=== PATIENT | male | born 1995 | race Caucasian/White ===

== ENCOUNTER 2019-12-23 08:27 | Emergency (ER) | payer BC, SELFPAY ==
--- NOTE | ~2019-12-23 | XR_ITS ---
EXAMINATION: XR abdomen/kub 1V EXAM DATE: 12/23/2019 09:42 INDICATION: Left flank pain, left lower pelvic pain. Left mid ureteral stone. TECHNIQUE: Frontal projection of the upper abdomen, frontal projection lower abdomen/pelvis for inter pretation. Correlation is made to CT abdomen same date. FINDINGS: There is expected amount of colonic stool and gas. No small bowel dilation, nonobstructiv e bowel gas pattern. Can't identify the left mid ureteral stone which projects over the sacrum, expe cted region has been indicated. Small right nephrolithiasis is identified. There is no organomegaly s uspected. The bones are unremarkable. IMPRESSION: Can't identify left mid ureteral stone. Small right nephrolithiasis identified. Reviewed, dictated and finalized at location A. IMPRESSION: Can't identify left mid ureteral stone. Small right nephrolithiasi s identified.
--- NOTE | ~2019-12-23 | CT_ITS ---
EXAMINATION: CT abdomen pelvis wo con EXAM DATE: 12/23/2019 09:33 INDICATION: Left-sided flank pain, nausea and vomiting. TECHNIQUE: Spiral CT of the abdomen and pelvis was performed without contrast. Axial, coronal and s agittal images were reviewed. The dose-length product (DLP) for this examination was 192.85 mGy-cm. The exposure was tailored according to patient size (auto mA exposure control), and iterative recons truction (ASIR) was used as additional dose reduction technique. There is no prior study for compari son. FINDINGS: The liver, spleen, adrenal glands and pancreas are unremarkable. Gallbladder is unremarkab le. No biliary obstruction. There is a 3 mm stone in the mid aspect of the left ureter. Mild left-si ded obstructive nephropathy. Scattered small kidney stones, largest on the right up to 4 mm. The pro state is unremarkable. The bladder is unremarkable. There is no retroperitoneal or pelvic lymphaden opathy. The appendix is normal. The stomach and small bowel are unremarkable. There is expected amount of c olonic stool. No free intraperitoneal gas. The heart is normal in size. There are no pericardial or pleural effusions. The lung bases are unremarkable. The bones are unremarkable. IMPRESSION: 1. Left mid ureteral 3 mm stone, mild obstructive nephropathy. 2. Small bilateral nephrolithiasis. Reviewed, dictated and finalized at location A.
[2019-12-23 08:30] VITALS: BP 143/106; PULSE 96; RESP 20; TEMP 36.4; O2SAT 100
[2019-12-23] MEDS: LACTATED RINGERS 1,000 ML 999 ML IV CONT (09:00)
--- NOTE | 2019-12-23 09:00 | ED.GENADULT ---
HPI - General Adult General Chief complaint: Back Pain/Injury Stated complaint: left lower back pain Time Seen by Provider: 12/23/19 08:37 Source: patient Mode of arrival: ambulatory Limitations: no limitations History of Present Illness HPI narrative: This patient is a 24 year old male who presents with c/o left flank pain. Patient developed pain to his left lower back early this morning. This pain has been intermittent, and it will get worse and then resolve. He started having nausea and vomiting x 2 so he came to ER. His pain has started to migrate around to left lower abdomen. He took tylenol at 6 am this morning. Onset (ago): hour(s) Location: back Radiation: abdomen Pain Consistency: colicky Relieving factors: none Exacerbating factors: none Related Data Allergies Allergy/AdvReac Type Severity Reaction Status Date / Time No Known Allergies Allergy Mild Verified 12/23/19 08:36 Review of Systems Review of Systems: All systems reviewed & are unremarkable except as noted in HPI and below Constitutional: Constitutional: Denies chills and Denies fever(s) Cardiovascular: Cardiovascular: Denies chest pain Respiratory: Respiratory: Denies cough and Denies dyspnea Gastrointestinal: Gastrointestinal: Reports abdominal pain, Denies diarrhea, Reports nausea and Reports vomiting Genitourinary: Genitourinary: Denies hematuria, Denies oliguria, Denies dysuria and Denies urinary frequency Musculoskeletal: Musculoskeletal: Reports back pain PMF Past Medical History Medical History (Updated 12/23/19 @ 12:38 by Marsha Santana MD) Patient denies significant medical history Surgical History Surgical History (Updated 12/23/19 @ 09:01 by Marsha Santana MD) No history of previous surgery Exam Narrative: Exam Narrative: HEAD: Normocephalic, atraumatic EYES: PERRLA and EOMI, conjunctiva clear without discharge NECK: Supple, without lymphadenopathy or mass RESPIRATORY: No respiratory distress, Airway patent, Respirations non-labored, Clear to auscultation without rales, rhonchi or wheeze HEART: Regular rate and rhythm. No murmur heard. Normal peripheral pulses. ABDOMEN: Soft, nontender, nondistended, normal active bowel sounds. No masses. No rebound or guarding, No organomegaly. EXTREMITIES: No edema, normal strength with full range of motion. SKIN: Warm, dry, normal color without rash NEURO: Alert and oriented x3. CN 2-12 grossly intact. No focal deficits. PSYCH: Normal mood and affect. Const: General: alert Orientation/consciousness: patient oriented x3 Other: mild distress Course Reevaluation(s) Reevaluation #1: I have discussed with patient that he was found to have a kidney stone as the cause for his pain. Date: 12/23/19 Time: 12:36 Vital Signs Vital signs: Vital Signs Temperature 97.6 F 12/23/19 08:30 Pulse Rate 96 12/23/19 08:30 Respiratory Rate 20 12/23/19 08:30 Blood Pressure 143/106 H 12/23/19 08:30 Pulse Oximetry 100 12/23/19 08:30 Temperature 97.6 F 12/23/19 08:30 Pulse Rate 100 12/23/19 12:50 Respiratory Rate 16 12/23/19 12:50 Blood Pressure 133/89 12/23/19 12:50 Pulse Oximetry 100 12/23/19 12:50 Medical Decision Making Vital Signs Vital Signs: Vital Signs Temperature 97.6 F 12/23/19 08:30 Pulse Rate 96 12/23/19 08:30 Respiratory Rate 20 12/23/19 08:30 Blood Pressure 143/106 H 12/23/19 08:30 Pulse Oximetry 100 12/23/19 08:30 Temperature 97.6 F 12/23/19 08:30 Pulse Rate 100 12/23/19 12:50 Respiratory Rate 16 12/23/19 12:50 Blood Pressure 133/89 12/23/19 12:50 Pulse Oximetry 100 12/23/19 12:50 Lab Data Lab results reviewed: Yes I reviewed the patient's lab results. Result diagrams: 12/23/19 08:55 12/23/19 08:55 Labs: Lab Results 12/23/19 12/23/19 12/23/19 Range/Units 08:55 08:55 11:08 WBC 7.8 (4.5-10.0) K/mm3 RBC 4.78 (4.6-6.20) M/mm3 H
[2019-12-23] MEDS: ONDANSETRON INJ 4 MG/2 ML VIAL IV PUSH (09:01)
[2019-12-23] MEDS: HYDROMORPHONE HCL 1 MG/ML INJ IV PUSH (09:01)
[2019-12-23 09:03] LABS: Basophils Percent Auto 0.5 % (0.2-1.2); Eosinophils Absolute Auto 0.1 K/mm3 (0-0.3); Eosinophils Percent Auto 1.4 % (0-4.4); Hematocrit 43.6 % (42.0-52.0); Hemoglobin 14.4 g/dL (14.0-18.0); Immature Granulocyte Absolute 0.03 K/mm3 (0.00-0.031); Immature Granulocyte Percent A 0.4 % (0-0.5); Lymphocytes Absolute Auto 2.11 K/mm3 (0.9-3.2); Lymphocytes Percent Auto 27.2 % (18.3-44.2); Mean Corpuscular Hemoglobin 30.1 pg (26-34); Mean Corpuscular Volume 91.2 fl (80-100); Mean Platelet Volume 9.4 fl (7.4-10.4); Monocytes Absolute Auto 0.5 K/mm3 (0.1-0.6); Monocytes Percent Auto 6.2 % (2.6-8.5); Neutrophils Percent Auto 64.3 % (45.5-73.1); Platelet Count Result 273 k/mm3 (150-375); Red Blood Count 4.78 M/mm3 (4.6-6.20); Red Cell Distribution Width 11.9 % (11.5-14.5); White Blood Count 7.8 K/mm3 (4.5-10.0)
[2019-12-23 09:15] LABS: Alanine Aminotransferase 18 U/L (4-50); Albumin Level 4.9 g/dL (3.5-5.1); Alkaline Phosphatase 74 U/L (38-126); Aspartate Amino Transferase 25 U/L (17-59); Bilirubin,Total 0.5 mg/dL (0.2-1.3); Blood Urea Nitrogen 14 mg/dL (9-20); Calcium 9.4 mg/dL (8.4-10.2); Carbon Dioxide 27 mmol/L (22-30); Chloride 104 mmol/L (98-107); Estimated CRCL calculation 98 ml/min; Estimated Glomerular Filt Rate > 60; Glucose 131 mg/dL (75-110); Potassium 3.9 mmol/L (3.4-5.0); Sodium 139 mmol/L (137-145)
[2019-12-23] MEDS: KETOROLAC 30 MG/ML VIAL (*BKC) IV PUSH (10:30)
[2019-12-23] MEDS: TAMSULOSIN HCL 0.4 MG CAPSULE PO (10:36)
[2019-12-23 11:33] LABS: Add Urine Microscopic? YES; Appearance Urine Clear (Clear); Bilirubin Urine Negative (Negative); Blood Urine 2+ (Negative); Color Urine Straw (Yellow); Glucose Urine UA Negative (Negative); Ketones Urine Trace mg/dL (Negative); Leukocyte Esterase Ur Negative LEU/UL (Negative); Mucus Urine Rare /lpf; Nitrate Urine Negative (Negative); Protein Urine 1+ mg/dL (Negative); RBC Urine >75 /hpf (0-2); Specific Grav Ur 1.018 (1.001-1.035); Urobilinogen Urine Negative mg/dL (<2.0); WBC Urine 0-3 /hpf
[2019-12-23 11:40] VITALS: BP 135/99; PULSE 82; RESP 16; O2SAT 100
[2019-12-23 12:50] VITALS: BP 133/89; PULSE 100; RESP 16; O2SAT 100
== END 2019-12-23 12:50 | disposition home or self-care (01) ==
PROVIDERS: Emergency Provider General Practice; PCP Physician Assistant
DX: N13.8 Other obstructive and reflux uropathy (principal); N20.2 Calculus of kidney with calculus of ureter
CPT/HCPCS: 36415; 74018; 74176; 80053; 81001; 85025; 96361; 96374; 96375; 99284; A9270; J1170; J1885; J2405; J7120

== ENCOUNTER 2020-01-05 09:35 | Emergency (ER) | payer OTHER, BC, SELFPAY ==
--- NOTE | ~2020-01-05 | XR_ITS ---
XR abdomen/kub 1V DATE: 01/05/2020 12:00 INDICATION: Right flank pain. Kidney stones. TECHNIQUE: AP projection, 2 views COMPARISON: 12/23/[address] abdomen pelvis 01/05/2020 CT abdomen pelvis with IV contrast material FINDINGS: A calcification appears to project partially over and partially beyond the distal left uret er, suggesting that the calcification lies outside the left ureter. Additional oblique views of the p frandy following voiding of the urinary bladder are recommended for more definitive evaluation as to w hether or not there is a distal left ureteral calculus. IMPRESSION: Additional oblique pelvic views are recommended Reviewed, dictated and finalized at [facility]. Reviewed, dictated and finalized at location A.
--- NOTE | ~2020-01-05 | XR_ITS ---
XR abdomen w oblique DATE: 01/05/2020 12:27 INDICATION: Bilateral urolithiasis TECHNIQUE: Bilateral oblique views COMPARISON: 12/23/2019 KUB Noncontrast 12/23/2019 CT abdomen pelvis 01/05/2020 CT abdomen pelvis with IV contrast material FINDINGS: There is a distal left ureteral calcified calculus which is responsible for mild partial ob struction. Again noted is mild right hydroureteronephrosis secondary to previously reported right ureteral calcu angela. IMPRESSION: Bilateral ureteral calculi, with right mild hydroureteronephrosis Reviewed, dictated and finalized at [facility]. Reviewed, dictated and finalized at location A.
--- NOTE | ~2020-01-05 | CT_ITS ---
EXAMINATION: CT abdomen pelvis w con DATE: 01/05/2020 10:48 INDICATION: Injury. Right flank pain. TECHNIQUE: Computed tomography (CT) of the abdomen and pelvis was performed with 100 cc Omnipaque 350 intravenous contrast. Automated exposure control and iterative reconstruction technique were employe d. Exam dose: 386.56 mGy-cm total exam DLP. COMPARISON: 12/23/2019 CT abdomen pelvis FINDINGS: The lung bases are clear. Normal heart size. No pericardial or pleural effusion. The liver, gallbladder, bile ducts, spleen, pancreas, pancreatic duct and adrenal glands appear hans l. There are approximately four stones measuring up to 3 mm. There are two up to approximately 3.4 mm left renal stones. There are occasional renal cysts measuring up to 11 mm on the right and 6 mm on the left. There is an approximately 3 mm obstructing calculus of the right ureter at the upper sacral level, wi th mild proximal right hydroureteronephrosis. Normal caliber of the abdominal aorta. No intraperitoneal or retroperitoneal or pelvic mass lesion o r lymphadenopathy. Normal appendix. No bowel obstruction or free air. Included skeletal structures are unremarkable. IMPRESSION: 3 mm obstructing calculus of the right ureter at the upper sacral level, with mild proxi mal right hydroureteronephrosis Bilateral nonobstructive nephrolithiasis Bilateral renal cysts Reviewed, dictated and finalized at [facility]. Reviewed, dictated and finalized at location A. IMPRESSION: 3 mm obstructing calculus of the right ureter at the upper sacral level, with mild proximal right hydroureteronephrosis Bilateral nonobstructive nephrolithiasis Bilateral renal cysts
[2020-01-05 09:46] VITALS: BP 140/80; PULSE 92; RESP 18; TEMP 36.9; O2SAT 100
[2020-01-05 10:19] LABS: Basophils Absolute Auto 0.1 K/mm3 (0.0-0.1); Basophils Percent Auto 0.5 % (0.2-1.2); Eosinophils Absolute Auto 0.2 K/mm3 (0-0.3); Eosinophils Percent Auto 1.7 % (0-4.4); Hematocrit 43.4 % (42.0-52.0); Hemoglobin 14.1 g/dL (14.0-18.0); Immature Granulocyte Absolute 0.03 K/mm3 (0.00-0.031); Immature Granulocyte Percent A 0.3 % (0-0.5); Lymphocytes Absolute Auto 2.12 K/mm3 (0.9-3.2); Lymphocytes Percent Auto 20.5 % (18.3-44.2); Mean Corpuscular HGB Conc 32.5 g/dl (32-36); Mean Corpuscular Hemoglobin 29.8 pg (26-34); Mean Corpuscular Volume 91.8 fl (80-100); Mean Platelet Volume 8.9 fl (7.4-10.4); Monocytes Absolute Auto 0.6 K/mm3 (0.1-0.6); Monocytes Percent Auto 5.6 % (2.6-8.5); Neutrophils Absolute Auto 7.4 K/mm3 (1.3-6.7); Neutrophils Percent Auto 71.4 % (45.5-73.1); Platelet Count Result 307 k/mm3 (150-375); Red Blood Count 4.73 M/mm3 (4.6-6.20); Red Cell Distribution Width 11.9 % (11.5-14.5); White Blood Count 10.4 K/mm3 (4.5-10.0)
[2020-01-05 10:30] LABS: Alanine Aminotransferase 19 U/L (4-50); Albumin Level 4.8 g/dL (3.5-5.1); Alkaline Phosphatase 69 U/L (38-126); Aspartate Amino Transferase 28 U/L (17-59); Bilirubin,Total 0.8 mg/dL (0.2-1.3); Blood Urea Nitrogen 17 mg/dL (9-20); Calcium 9.6 mg/dL (8.4-10.2); Carbon Dioxide 30 mmol/L (22-30); Chloride 104 mmol/L (98-107); Estimated CRCL calculation 84 ml/min; Estimated Glomerular Filt Rate > 60; Glucose 127 mg/dL (75-110); Lipase 39 U/L (23-300); Potassium 4.3 mmol/L (3.4-5.0); Sodium 142 mmol/L (137-145)
[2020-01-05 10:33] LABS: Add Urine Microscopic? YES; Appearance Urine Cloudy (Clear); Bacteria Urine Trace /hpf; Bilirubin Urine Negative (Negative); Blood Urine 3+ (Negative); Color Urine Yellow (Yellow); Glucose Urine UA Negative (Negative); Ketones Urine Negative (Negative); Leukocyte Esterase Ur Negative LEU/UL (Negative); Mucus Urine Heavy /lpf; Nitrate Urine Negative (Negative); Protein Urine 2+ mg/dL (Negative); RBC Urine >75 /hpf (0-2); Specific Grav Ur 1.027 (1.001-1.035); Squamous Epithelial Cell Urine Occasional /hpf (Few); Urobilinogen Urine Negative mg/dL (<2.0); WBC Urine 16-20 /hpf
[2020-01-05] MEDS: MORPHINE SULFATE 4 MG/ML INJ IV PUSH (10:45)
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
[2020-01-05 11:39] VITALS: BP 117/79; PULSE 88; RESP 16; TEMP 36.9; O2SAT 99
== END 2020-01-05 13:00 | disposition home or self-care (01) ==
PROVIDERS: Emergency Provider Emergency Medicine; PCP Physician Assistant
DX: N13.2 Hydronephrosis with renal and ureteral calculous obstruction (principal); Z87.442 Personal history of urinary calculi; N28.1 Cyst of kidney, acquired
CPT/HCPCS: 36415; 74018; 74021; 74177; 80048; 80076; 81001; 83690; 85025; 87086; 96374; 99284; J2270; Q9967

== ENCOUNTER 2020-01-23 14:56 | Outpatient (CLI) | payer BC, SELFPAY ==
--- NOTE | ~2020-01-23 | CT_ITS ---
EXAMINATION: CT abdomen pelvis wo con DATE: 01/23/2020 15:39 INDICATION: Right ureteral stone TECHNIQUE: Computed tomography (CT) of the abdomen and pelvis was performed without intravenous contr ast. The dose-length product (DLP) was 416.57 mGy-cm. Automated exposure control and iterative recons truction technique were employed. COMPARISON: 01/05/2020 FINDINGS: The lung bases are clear. The heart size is normal. The liver, spleen, pancreas, gallbladde r, and adrenal glands are normal. There are multiple nonobstructing stones of the kidneys. The previo usly described right ureteral stone is no longer identified. No stones are identified in the ureters or bladder. There is no hydronephrosis or hydroureter. No pathologically enlarged abdominal or pelvic lymph nodes are identified. There is no free intraperitoneal gas or evidence of bowel obstruction. T he appendix is normal. There is mild lumbar spondylosis at L5-S1. IMPRESSION: 1. Interval treatment or passage of the previously described right ureteral stone. No stones in the u reters or bladder. 2. Bilateral nephrolithiasis. Reviewed, dictated and finalized at location A. IMPRESSION: 1. Interval treatment or passage of the previously described right ureteral sto ne. No stones in the ureters or bladder. 2. Bilateral nephrolithiasis.
--- NOTE | ~2020-01-23 | XR_ITS ---
EXAMINATION: XR abdomen/kub 1V INDICATION: Right ureteral stone TECHNIQUE: Supine views of the abdomen were obtained on 2 radiographs. COMPARISON: CT from today and radiographs dated 01/05/2020 FINDINGS: Bilateral nephrolithiasis is noted. The previously identified right ureteral stone is no lo nger evident. A phlebolith is noted in the left pelvis. The bowel gas pattern is normal. The visualiz ed osseous structures are unremarkable. IMPRESSION: 1. Interval treatment or passage of the previously described right ureteral stone. 2. Bilateral nephrolithiasis. Reviewed, dictated and finalized at location A. IMPRESSION: 1. Interval treatment or passage of the previously described right ureteral sto ne. 2. Bilateral nephrolithiasis.
== END 2020-01-23 14:57 | disposition home or self-care (01) ==
PROVIDERS: PCP Physician Assistant; Visit Provider Urology
DX: N20.0 Calculus of kidney (principal)
CPT/HCPCS: 74018; 74176

== ENCOUNTER 2022-02-16 12:23 | Emergency (ER) | payer BC, SELFPAY ==
--- NOTE | ~2022-02-16 | XR_ITS ---
EXAMINATION: XR hand LT min 3V DATE: 02/16/2022 12:43 INDICATION: Ulnar-sided left hand pain post fall 2 days prior TECHNIQUE: Posteroanterior, oblique and lateral views of the left hand were obtained. COMPARISON: None. FINDINGS: Alignment is normal. No fracture. Joint spaces are normal. Soft tissues are unremarkable. IMPRESSION: 1. . Negative left hand radiographs. Reviewed, dictated and finalized at location A.
[2022-02-16 12:31] VITALS: BP 145/78; PULSE 79; RESP 16; TEMP 36.2; O2SAT 99
--- NOTE | 2022-02-16 13:23 | ED.UPPEXIN ---
HPI - Extremity Injury (Upper) General Chief Complaint: Extremity Injury, Upper Stated Complaint: left hand pain Time Seen by Provider: 02/16/22 13:19 Source: patient Mode of arrival: ambulatory Limitations: no limitations History of Present Illness HPI narrative: Patient presents today complaining of left hand pain. States he was chasing his dog around his house when he fell 2 days ago with his hand underneath him. He reports some intermittent tingling to the fifth finger and metacarpal, but this is mostly resolved. He currently rates his pain and has taken some ibuprofen a few days ago with mild relief. Related Data Home Medications Medication Instructions Recorded Confirmed No Home Medications 02/16/22 02/16/22 Allergies Allergy/AdvReac Type Severity Reaction Status Date / Time No Known Allergies Allergy Mild Verified 01/05/20 09:53 Review of Systems Review of Systems: CONSTITUTIONAL: Denies body aches, fever, chills, or sweats. EYES: Denies visual changes, redness, or discharge. ENT: Denies rhinorrhea, congestion, sore throat, or otalgia. CARDIOVASCULAR: Denies chest pain, palpitations, or edema. RESPIRATORY: Denies cough or dyspnea. GASTROINTESTINAL: Denies abdominal pain, nausea, vomiting, or diarrhea. GENITOURINARY: Denies dysuria or hematuria. SKIN: Denies rash, itching, or wounds. MUSCULOSKELETAL: Denies back pain, or myalgia.+ Left hand pain NEUROLOGIC: Denies headache, numbness, or weakness.+ Left hand tingling PSYCH: Denies depression or anxiety. [facility] Past Medical History Medical History Kidney stones Surgical History Surgical History No history of previous surgery Social History Social History Smoking status: Never smoker Gender identity (if verbalized by the patient): Female Comments At time of signature, I have reviewed and agree with nursing past medical, surgical, social and family history unless otherwise noted. Please see nursing chart for further information. There is no relevant family history pertinent to the presenting complaint Exam Narrative: GENERAL: Well-appearing, well-nourished, and in no acute distress. HEAD: Normocephalic, atraumatic. EYES: EOMI. No redness or drainage. Conjunctivae normal. ENT: Mucous membranes pink and moist. NECK: Normal AROM. CHEST: No respiratory distress. EXTREMITIES: Left hand: Mild tenderness to the base of the fifth metacarpal, otherwise nontender throughout the hand and fingers. Scant edema to the base of the fifth finger. No ecchymosis, no erythema. Distal sensation intact. Capillary refill normal. Radial pulse normal. Full AROM of all fingers. SKIN: Warm, dry, no rash. Capillary refill normal. Normal skin turgor. NEURO: No focal deficits. Alert and oriented x3. Gait steady. PSYCH: Normal affect. No signs of depression or anxiety. Course Course Level of Care: Express Care Visit Vital Signs Vital signs: Vital Signs Temperature 97.1 F L 02/16/22 12:31 Pulse Rate 79 02/16/22 12:31 Respiratory Rate 16 02/16/22 12:31 Blood Pressure 145/78 H 02/16/22 12:31 Pulse Oximetry 99 02/16/22 12:31 Oxygen Delivery Room Air 02/16/22 12:31 Temperature 97.1 F L 02/16/22 12:31 Pulse Rate 79 02/16/22 12:31 Respiratory Rate 16 02/16/22 12:31 Blood Pressure 145/78 H 02/16/22 12:31 Pulse Oximetry 99 02/16/22 12:31 Oxygen Delivery Room Air 02/16/22 12:31 Reviewed. Pt has been instructed to follow up with his PCP regarding his elevated blood pressure today. MDM - Extremity Injury (Upper) Differential Diagnosis Differential diagnosis: Likely finger sprain, fracture of hand and other (Finger fracture, contusion) Imaging Data Radiologist's impression: ITS Impressions Hand X-Ray 02/16/22 13:06 IMPR
== END 2022-02-16 13:29 | disposition home or self-care (01) ==
PROVIDERS: Emergency Provider Nurse Practitioner; PCP Physician Assistant
DX: S63.92XA Sprain of unspecified part of left wrist and hand, initial encounter (principal); W19.XXXA Unspecified fall, initial encounter
CPT/HCPCS: 73130; 99213; G0463

== ENCOUNTER 2022-03-17 23:44 | Emergency (ER) | payer BC, SELFPAY ==
--- NOTE | ~2022-03-17 | XR_ITS ---
EXAMINATION: XR chest 2V DATE: 03/18/2022 00:04 INDICATION: Mid chest pain TECHNIQUE: Frontal and lateral views of the chest are obtained COMPARISON: None available FINDINGS: The lungs are free of acute opacities. No pleural effusion or pneumothorax. The cardiomedia stinal silhouette is normal. The visualized bones and soft tissues are unremarkable. IMPRESSION: 1. No acute cardiopulmonary abnormality. Reviewed, dictated and finalized at location A.
--- NOTE | 2022-03-17 23:45 | ECG_ITS ---
Measurements Intervals [place] Rate: 82 P: 10 NE: 120 QRS: 68 QRSD: 79 T: 57 QT: 339 QTc: 396 Interpretive Statements SINUS RHYTHM WITH SINUS ARRHYTHMIA NORMAL ELECTROCARDIOGRAM NO PREVIOUS ECG AVAILABLE FOR COMPARISON Electronically Signed On 03-18-2022 11:59:00 CDT by Demetri Silva M.D.
[2022-03-17 23:48] VITALS: BP 143/95; PULSE 89; RESP 16; TEMP 36.5; O2SAT 98
--- NOTE | 2022-03-17 23:49 | ED.CHESTPAIN ---
HPI - Chest Pain General Chief Complaint: Chest Pain Stated Complaint: chest pain Time Seen by Provider: 03/17/22 23:46 Source: RN notes reviewed History of Present Illness HPI narrative: Patient presents emergency department from home for chest pain. Patient states pain began approximately 2 hours ago. The pain is located in the lower midsternal chest and does not radiate described as tight in nature. States that the makes the pain better or worse. Patient states that he has no associated shortness of breath denies any fevers or chills abdominal pain nausea vomiting or any other symptoms. States he did take Tums at home states that the pain is now resolved at this time Related Data Allergies Allergy/AdvReac Type Severity Reaction Status Date / Time No Known Allergies Allergy Mild Verified 03/17/22 23:52 Review of Systems Review of Systems: Gen.: Denies fevers or chills ENT: Denies congestion Respiratory: Denies shortness of breath or cough CV: See HPI GI: Denies abdominal pain nausea, emesis or diarrhea Musculoskeletal: Denies back pain or muscle pain Neuro: Denies numbness, tingling, weakness or focal weakness Skin: Denies rash Except as documented, all other systems reviewed and negative [facility] Past Medical History Medical History Kidney stones Surgical History Surgical History No history of previous surgery Social History Social History Smoking status: Never smoker Gender identity (if verbalized by the patient): Female Exam Narrative: APPEARANCE: No acute distress, nontoxic, resting in bed EYES: EOMI HEENT: Normocephalic, atraumatic, OMM RESPIRATORY: No respiratory distress Clear to auscultation bilaterally with no rhonchi wheezing or rales. CARDIOVASCULAR: Regular rate and rhythm without murmurs rubs or gallops. ABDOMINAL: Soft, nontender, nondistended, no rebound or guarding MUSCULOSKELETAl: Moves all extremities. No clubbing, cyanosis or edema. NEURO: Awake and alert. Following commands, speech normal, no focal deficits SKIN:: Warm, dry. No rashes lesions or abrasions PSYCHIATRIC: Normal affect/mood, Course Course Emergency Course: Patient meets PERC rule criteria and no further testing needs to be performed for pulmonary embolism. Patient states he is pain-free for 3 hours until he rolled over in bed and when he rolled over he had pain in his chest and in his back in the same region at that time he was given a GI cocktail with improvement and Toradol with resolution of his pain Discussed with patient results of workup and diagnosis. Discussed need for follow-up with primary care, proper use of medication, and reasons to return to the emergency department. Patient understands and agrees to current treatment plan Vital Signs Vital signs: Vital Signs Temperature 97.7 F 03/17/22 23:48 Pulse Rate 89 03/17/22 23:48 Respiratory Rate 16 03/17/22 23:48 Blood Pressure 143/95 H 03/17/22 23:48 Pulse Oximetry 98 03/17/22 23:48 Oxygen Delivery Room Air 03/17/22 23:48 Temperature 97.7 F 03/17/22 23:48 Pulse Rate 85 03/18/22 05:19 Respiratory Rate 18 03/18/22 05:19 Blood Pressure 130/94 H 03/18/22 05:19 Pulse Oximetry 96 03/18/22 05:19 Oxygen Delivery Room Air 03/17/22 23:48 MDM - Chest Pain MDM Narrative Medical decision making narrative: Patient's EKGs and labs are without significant high risk changes. Cardiac risk factors reviewed. Patient is felt likely low risk for ACS and reasonable for further risk stratification testing as an outpatient. Pain was not sudden or maximal in onset without tearing or ripping quality. No other signs of symptoms suggest aortic dissection. A low-risk Wells criteria is noted, PE is felt to be unlikely. No pneumonia seen on evaluation today. Patient is felt to be
[2022-03-18] LABS: Basophils Absolute Auto 0.1 K/mm3 (0.0-0.1); Basophils Percent Auto 0.6 % (0.2-1.2); Eosinophils Absolute Auto 0.3 K/mm3 (0-0.3); Eosinophils Percent Auto 3.1 % (0-4.4); Hematocrit 42.2 % (42.0-52.0); Hemoglobin 13.8 g/dL (14.0-18.0); Immature Granulocyte Absolute 0.02 K/mm3 (0.00-0.031); Immature Granulocyte Percent A 0.2 % (0-0.5); Lymphocytes Absolute Auto 3.04 K/mm3 (0.9-3.2); Lymphocytes Percent Auto 33.8 % (18.3-44.2); Mean Corpuscular HGB Conc 32.7 g/dl (32-36); Mean Corpuscular Hemoglobin 29.9 pg (26-34); Mean Corpuscular Volume 91.5 fl (80-100); Mean Platelet Volume 8.9 fl (7.4-10.4); Monocytes Absolute Auto 0.8 K/mm3 (0.1-0.6); Monocytes Percent Auto 9.2 % (2.6-8.5); Neutrophils Absolute Auto 4.8 K/mm3 (1.3-6.7); Neutrophils Percent Auto 53.1 % (45.5-73.1); Platelet Count Result 269 k/mm3 (150-375); Red Blood Count 4.61 M/mm3 (4.6-6.20); Red Cell Distribution Width 12.2 % (11.5-14.5)
[2022-03-18 00:13] LABS: INR 0.9; Prothrombin Time 11.9 Seconds (11.1-14.7)
[2022-03-18 00:38] LABS: Alanine Aminotransferase 38 U/L (6-50); Albumin Level 4.5 g/dL (3.5-5.1); Alkaline Phosphatase 76 U/L (38-126); Anion Gap 10 mmol/L (8-16); Aspartate Amino Transferase 29 U/L (17-59); Bilirubin,Total 0.2 mg/dL (0.2-1.3); Blood Urea Nitrogen 15 mg/dL (9-20); Calcium 9.3 mg/dL (8.4-10.2); Carbon Dioxide 29 mmol/L (22-30); Chloride 102 mmol/L (98-107); Estimated CRCL calculation 89 ml/min; Estimated Glomerular Filt Rate > 60; Glucose 108 mg/dL (65-110); Lipase 54 U/L (23-300); Potassium 3.8 mmol/L (3.4-5.0); Sodium 141 mmol/L (137-145)
[2022-03-18 00:59] VITALS: BP 146/94; PULSE 87; RESP 16; O2SAT 97
[2022-03-18 01:00] LABS: Troponin I < 0.012 ng/mL (0.000-0.034)
[2022-03-18 02:59] VITALS: PULSE 84; RESP 12; O2SAT 96
--- NOTE | 2022-03-18 02:59 | PC.NURSE ---
Assumed care of pt at this time. Pt resting on stretcher, light dimmed.
[2022-03-18 04:32] VITALS: BP 139/104; PULSE 88; RESP 17; O2SAT 97
--- NOTE | 2022-03-18 04:34 | PC.NURSE ---
10mL 2% viscous lidocaine and 30mL Mylanta given at this time. Could not chart in MAR
--- NOTE | 2022-03-18 04:45 | PC.NURSE ---
30 mg toradol given at this time. unable to chart in MAR
[2022-03-18 04:58] LABS: Troponin I < 0.012 ng/mL (0.000-0.034)
[2022-03-18 05:19] VITALS: BP 130/94; PULSE 85; RESP 18; O2SAT 96
== END 2022-03-18 05:35 | disposition home or self-care (01) ==
PROVIDERS: Emergency Provider Emergency Medicine; PCP Physician Assistant
DX: R07.9 Chest pain, unspecified (principal); Z87.442 Personal history of urinary calculi
CPT/HCPCS: 36415; 71046; 80053; 83690; 84484; 85025; 85610; 85730; 93005; 99284; A9270; J1885

== ENCOUNTER 2022-09-02 01:41 | Day surgery (SDC) | payer BC, SELFPAY ==
[2022-08-17 10:33] VITALS: BMI 28.5
--- NOTE | 2022-09-01 15:13 | P.PNAN_ITS ---
Anes - Initial Pre Proc Eval Procedure: Operation Date: 09/02/22 10:00 Proposed Procedures p Esophagogastroduodenoscopy - Ed Gonzalez MD Date/Time: 09/01/22 15:13 Surgeon: Ed Gonzalez MD Pre Op Diagnosis: peptic ulcer Patient Data Age: 27 Gender: M Height: 1.8 m Weight: 93 kg Allergies Allergy/AdvReac Type Severity Reaction Status Date / Time No Known Allergies Allergy Mild Verified 09/02/22 08:54 Home Medications Medication Instructions Recorded Confirmed Type omeprazole 40 mg capsule,delayed 40 mg PO DAILY PRN Chest Pain 08/17/22 09/02/22 History release Patient hx anesthesia problems: none Family hx anesthesia problems: none Results Review: All pre-operative results and documents have been reviewed as part of the pre-operative evaluation. [facility], [facility] Past Medical History Medical History (Updated 09/02/22 @ 09:31 by Ed Gonzalez MD) Kidney stones Non-cardiac chest pain Surgical History Surgical History No history of previous surgery Social History Social History Smoking status: Never smoker Living arrangements: with family Gender identity (if verbalized by the patient): Female Spiritual care concerns: No Anes - Eval Final PreProcedure Day of Procedure 09/01/22 15:13 Patient weight: overweight Heart: regular rate and rhythm Lungs: clear to auscultation Airway: Mallampati scale class II Neurological: alert and oriented Last oral intake: >/= 8 hours ASA classification: II Emergent: no Anesthetic plan: proceed Anesthesia type and monitoring: general GIVS and standard monitoring Results Review: All pre-operative results and documents have been reviewed as part of the pre- operative evaluation. Informed Consent: The patient's anesthetic plan and its attendant risks and benefits were discussed with the patient/family/POA. Questions were solicited and answers provided to the satisfaction of the patient/family/POA.
[2022-09-02 08:56] VITALS: BP 125/90; PULSE 90; RESP 22; TEMP 36.4; O2SAT 99
[2022-09-02] MEDS: LACTATED RINGERS 1,000 ML 150 ML IV CONT (09:01)
--- NOTE | 2022-09-02 09:30 | PM.HPGS ---
History of Present Illness History of Present Illness Consent: Risks, benefits, and alternatives have been discussed and questions answered. Patient agrees to proceed with procedure. Chief complaint: peptic ulcer Narrative: Ricardo Brito is a 27 year old male with non-cardiac chest pain, UGI showed possible small ulcer in duodenum, he was prescribed omeprazole but only taken as needed, probably no more than 5 times in last month. Never had egd Review of Systems Constitutional: Constitutional: Denies headache(s) and Denies weakness Eyes: Eyes: Denies blurry vision ENT: Reports Normal hearing present, Denies headache(s) and Denies neck pain Cardiovascular: Cardiovascular: Denies chest pain and Denies dyspnea Respiratory: Respiratory: Denies dyspnea Gastrointestinal: Gastrointestinal: Reports no additional gastrointestinal complaints Genitourinary: Genitourinary: Denies dysuria Musculoskeletal: Musculoskeletal: Denies neck pain Integumentary/Breasts: Skin/Breast: Denies dry skin Neurologic: Reports Normal hearing present, Denies headache(s) and Denies weakness Psychiatric: Psychiatric: Denies anxiety Endocrine: Endocrine: Denies change in body appearance Hematologic/Lymphatic: Hematologic/Lymphatic: Denies easy bleeding Allergic/Immunologic: Allergic/Immunologic: Denies urticaria PMFSH Past Medical History Medical History (Updated 09/02/22 @ 09:31 by Ed Gonzalez MD) Kidney stones Non-cardiac chest pain Surgical History Surgical History No history of previous surgery Social History Social History Smoking status: Never smoker Living arrangements: with family Gender identity (if verbalized by the patient): Female Spiritual care concerns: No Meds Home Medications and Allergies Home Medications Medication Instructions Recorded Confirmed Type omeprazole 40 mg capsule,delayed 40 mg PO DAILY PRN Chest Pain 08/17/22 09/02/22 History release Allergies Allergy/AdvReac Type Severity Reaction Status Date / Time No Known Allergies Allergy Mild Verified 09/02/22 08:54 Vital Signs Vital Signs - 24 hr 09/02/22 08:56 Temperature 97.5 F L Pulse Rate 90 Respiratory Rate 22 H Blood Pressure 125/90 Pulse Oximetry 99 Oxygen Delivery Room Air Exam Const: General: comfortable and no acute distress HENMT: Face/Nose/Sinus: Normal nares present Eyes: General: appearance normal, both eyes and all related structures Neck: Neck: no JVD Resp: Auscultation: clear to auscultation bilaterally Cardio: Rate: regular rate Rhythm: regular rhythm GI: Inspection: non-distended GI Palp: Yes Soft to palpation Skin: General skin exam: normal color Neuro: General: gait normal Speech: normal speech Extrem: General: normal to inspection Psych: Mental Status: mental status grossly normal Assessment and Plan Assessment and plan (1) Non-cardiac chest pain: Code(s): R07.89 - Other chest pain Status: Acute Assessment and Plan: egd with bx
[2022-09-02 09:48] VITALS: BP 112/77; PULSE 99; RESP 16; O2SAT 96
[2022-09-02 09:58] VITALS: BP 122/88; PULSE 105; RESP 15; O2SAT 100
== END 2022-09-02 10:40 | disposition home or self-care (01) ==
PROVIDERS: PCP Physician Assistant; Visit Provider Internal Medicine Gastroenterology
PROC: 0DJ08ZZ Inspection of Upper Intestinal Tract, Via Natural or Artificial Opening Endoscopic (ICD-10-PCS; CPT 43235; principal; 2022-09-02 10:00)
DX: R07.89 Other chest pain (principal)
CPT/HCPCS: 43239; 88305; J2704; J7120

== ENCOUNTER 2024-06-29 10:26 | Outpatient (CLI) | payer BC, SELFPAY ==
--- NOTE | ~2024-06-29 | XR_ITS ---
XR lumbar spine 2-3V DATE: 06/29/2024 10:41 INDICATION: Low back pain TECHNIQUE: AP, lateral, coned lateral lumbosacral views COMPARISON: None FINDINGS: There is mild thoracolumbar dextroscoliosis. Included lower thoracic and lumbar pedicles are intact. No lumbar spine fracture or bone destruction is evident. Lumbar and lumbosacral interspaces are relatively preserved. The sacroiliac joints are intact. There is a prominent amount of fecal material in the colon. IMPRESSION: No significant abnormality of the lumbar spine Prominent amount of fecal material in the colon Reviewed, dictated and finalized at location A. [employer]
== END 2024-06-29 10:27 | disposition home or self-care (01) ==
LOC: MICIMG 10:29
PROVIDERS: PCP Physician Assistant; Visit Provider Physician Assistant
DX: M54.50 Low back pain, unspecified (principal)
CPT/HCPCS: 72100

== ENCOUNTER 2024-08-11 09:15 | Emergency (ER) | payer BC, SELFPAY ==
[2024-08-11 09:18] VITALS: BP 136/103; PULSE 103; RESP 20; TEMP 36.5; O2SAT 98
--- NOTE | 2024-08-11 10:37 | PC.NURSE ---
Pt to the intake desk with his kidney stone he passed in hand and states he doesn't need to be seen anyymore since he past the stone. pt ambulated to exit
== END 2024-08-11 11:34 | disposition left against medical advice (07) ==
PROVIDERS: PCP Physician Assistant
DX: Z53.21 Procedure and treatment not carried out due to patient leaving prior to being seen by health care provider (principal)
CPT/HCPCS: 99199